=== PATIENT | female | born 1980 | race African-American/Black ===

== ENCOUNTER 2019-09-26 13:08 | Observation (INO) ==
[2019-09-26] MEDS ORDERED: ASPIRIN PO ONE (13:19)
--- NOTE | 2019-09-26 13:48 | EKG Report ---
Test Performed on : 09/26/2019 1:31:23 PM Test Reason : cp/sob Blood Pressure : / mmHG Vent. Rate : 105 BPM Atrial Rate : 105 BPM P-R Int : 140 ms QRS Dur : 074 ms QT Int : 350 ms P-R-T Axes : 060 -04 036 degrees QTc Int : 462 ms Sinus tachycardia. Possible Left atrial enlargement Borderline ECG When compared with ECG of 14-FEB-2019 09:18, No significant change was found Unconfirmed Result
[2019-09-26 13:56] LABS: AGAP 11; ALBUMIN 4.7 g/dL (3.5-5.0); ALKALINE PHOSPHATASE 87 U/L (32-104); BUN 7 mg/dL (8-22); CALCIUM 9.4 mg/dL (8.8-10.2); CHLORIDE 108 mmol/L (98-107); CK PROFILE 108 U/L (24-173); COSMO 281; CREATININE 0.6 mg/dL (0.5-0.9); ESTIMATED GFR > 60; GLUCOSE 88 mg/dL (70-104); GOT 11 U/L (10-30); GPT 11 U/L (10-36); SODIUM 142 mmol/L (136-145); TCO2 23 mmol/L (25-35); TOTAL PROTEIN 7.6 g/dL (6.3-8.3)
[2019-09-26 14:06] LABS: BASO# 0.03 X1000 (0.0-0.2); BASO% 0.3 % (0.0-0.8); EOS# 0.14 X1000 (0.0-0.7); EOS% 1.5 % (0.0-10.0); HEMOGLOBIN 13.8 g/dL (12.0-16.0); IMM GRAN# 0.02 X1000 (0.0-0.04); IMM GRAN% 0.2 % (0.0-0.5); LYMPH% 25.1 % (20.5-51.1); MCH 27.9 PG (27-31); MCHC 34.5 g/dL (33-37); MONO# 0.76 X1000 (0.11-0.59); MONO% 7.9 % (1.7-9.3); MPV 11.7 FL (7.4-10.4); NEUT# 6.23 X1000 (1.4-6.5); PLT 289 X1000 (130-400); RBC 4.94 XMIL (4.2-5.4); WBC 9.58 X1000 (4.8-10.8)
--- NOTE | 2019-09-26 14:13 | Diag Imaging Result Doc PS360 ---
CHEST-2 VIEWS - 09/26/2019 INDICATION: cp/sob COMPARISON: 02/14/2019 FINDINGS: The lungs are normally expanded and clear. Heart size and mediastinal contours are normal. No pneumothorax or pleural effusion. IMPRESSION: Negative exam. Electronically signed by Santos Avery 09/26/2019 2:11 PM
[2019-09-26] MEDS ORDERED: DILAUDID IV ONE (14:20)
[2019-09-26] MEDS ORDERED: PROTONIX IV ONE ×2 (14:20→14:55)
[2019-09-26] MEDS ORDERED: SODIUM CHLORIDE 0.9% INJ ONE ×4 (14:20→14:55)
[2019-09-26] MEDS ORDERED: PEPCID IV ONE ×2 (14:20→14:55)
[2019-09-26] MEDS ORDERED: ZOFRAN IV ONE (14:20)
[2019-09-26 14:36] LABS: INR 0.95; PROTIME 13.1 Seconds (11.0-16.0)
[2019-09-26 14:37] LABS: PTT 34.9 Seconds (22.3-41.8)
[2019-09-26] MEDS ORDERED: G.I. COCKTAIL PO ONE (14:55)
[2019-09-26] MEDS ORDERED: APRESOLINE IV ONE (16:15)
--- NOTE | 2019-09-26 16:26 | Diag Imaging Result Doc PS360 ---
EXAM: CT THORAX/ABD/PELVIS W/CON - 09/26/2019 HISTORY: LT. SIDE PAIN TECHNIQUE: CT thorax and abdomen/pelvis with intravenous contrast COMPARISON: 07/01/2016 CT abdomen/pelvis FINDINGS: CT thorax: The lungs appear clear. There is no pleural effusion or pneumothorax identified. There are calcified hilar and mediastinal lymph nodes from old granulomatous disease. There are no substantially enlarged noncalcified mediastinal or hilar lymph nodes identified. CT abdomen/pelvis: There is no liver abnormality identified. There is an approximately 2 x 1.8 cm lobulated low-density lesion in the posterior lateral spleen. The spleen appears upper range of normal in size. There is a 2.2 cm right adrenal nodule. The left adrenal gland is unremarkable. The bilateral kidneys enhance homogeneously except for tiny cysts at the lower right kidney. There is no hydronephrosis. There are nonspecific small retroperitoneal lymph nodes. There are some lower lumbar spine degenerative changes noted. There is no evidence of bowel obstruction. The appendix has air in the lumen and shows no evidence of inflammation. There is possible mild colonic diverticulosis. There is no evidence of diverticulitis. There is no free air or abscess identified. There is a tiny fat-containing umbilical hernia. There is a 2.6 x 2 cm low-density left adnexal lesion, which has enhancing ross. This is nonspecific but could represent a partially collapsed left ovarian cyst. There is a small amount of free fluid in the posterior pelvis. There is a sclerotic lesion at the right pubic symphysis. This was not present on the prior exam. IMPRESSION: CT thorax: No evidence of acute disease. CT abdomen/pelvis: 2 x 1.8 cm low-density splenic lesion. This could be infectious/inflammatory or malignant. 2.2 cm right adrenal nodule. Considerations include adrenal adenoma and malignancy such as metastasis. 2.6 x 2 cm left adnexal lesion. This is nonspecific but may represent a partially collapsed left ovarian cyst. There is a small amount of free fluid in the pelvis. Sclerotic lesion at right pubic symphysis. Considerations include interval old fracture, unusual degenerative disease, and sclerotic metastasis. This exam was performed using automated exposure control, adjustment of mA or kV according to patient size, and/or use of iterative reconstruction technique. Electronically signed by Mohinder Griffith 09/26/2019 4:23 PM
[2019-09-26] MEDS ORDERED: TYLENOL PO ONE (17:03)
--- NOTE | 2019-09-26 17:26 | PROVIDER DOCUMENTATION ---
This chart was entered by Tricia Pina Scribe, acting as scribe for Germain Romero MD. HPI-General Adult - General Chief Complaint: Chest Pain Stated Complaint: FLANK PAIN Time Seen by Provider: 09/26/19 13:24 Source: patient, family Allergies/Adverse Reactions: Patient Allergies Allergy/AdvReac Type Severity Reaction Status Date / Time No Known Allergies Allergy Verified 09/26/19 13:17 Home Medications: Home Medication List Medication Instructions Recorded Confirmed Last Taken Type Amlodipine [Norvasc] 10 mg PO DAILY #30 tab 01/31/19 09/26/19 Unknown Rx Famotidine [Pepcid] 20 mg PO DAILY #30 tab 09/26/19 Unknown Rx Pantoprazole [Protonix] 40 mg PO DAILY@0700 #30 tab 09/26/19 Unknown Rx - History of Present Illness -Gen Adult Nature of Presenting Problems: 39 yobf presents to the ed with c/o left anterior/central chest wall pain that radiates under left breast into left ribs. pt also has epigastric pain worse with palpation. pt sts pain is worse with deep breathing, movement or palpation. pt on exam is terful and anxious and sts "Im just scared" Location of Pain/Injury: reports: chest, abdomen Pain Radiation: reports: other (ribs) Quality of Pain: reports: aching, dull Severity: reports: severe Onset/Duration: reports: 2 days ago Timing: reports: still present, intermittent, getting worse Context/Activities at Onset: reports: light activity Modifying Factors: improves with: nothing, immobilization. worse with: coug monik, exercise, movement, palpation Associated Symptoms: reports: anxiety, chest pain, other (rib pain). denies: back/neck pain, fatigue, fever/chills, headaches, nausea, shortness of breath Similar Symptoms Previously?: No Recently seen or treated by another doctor?: No Review of Systems - Adult - REVIEW OF SYSTEMS - ADULT Constitutional: denies: chills, fever Eyes: reports: no symptoms reported Ears, Nose, Mouth & Throat: reports: no symptoms reported Cardiovascular: reports: see HPI, chest pain. denies: palpitations, syncope Respiratory: denies: shortness of breath, wheezing Gastrointestinal: reports: see HPI, abdominal pain. denies: diarrhea, nausea, vomiting Genitourinary: reports: no symptoms reported Musculoskeletal: reports: see HPI, bone pain (rib pain). denies: neck pain Integumentary: reports: no symptoms reported Neurological: denies: dizziness/vertigo, headache/migraines Psychiatric: reports: no symptoms reported Endocrine: reports: no symptoms reported Hematologic/Lymphatic: reports: no symptoms reported Allergic/Immunologic: reports: no symptoms reported All Other Systems: Reviewed and Negative Past History - Adult - PAST MEDICAL HISTORY-ADULT Review of Records: reports: Old Records Reviewed, Nursing Assessment Review, Medications Reviewed, Social history reviewed & non-contributory. Major Childhood Illnesses: reports: history unknown Cardiovascular: reports: HTN Respiratory: reports: denies history Gastrointestinal: reports: GERD Obstetrical/Gynecological: reports: denies history Genitourinary: reports: denies history Musculoskeletal: reports: denies history Hand Dominance: Right Handed Neurological: reports: denies history Psychiatric: reports: denies history Endocrine/Immune: reports: Sickle Cell disease Other Conditions: reports: denies history - PRIOR SURGERIES/PROCEDURES Surgical/Procedure History: reports: , orthopedic (extremity) - PRIOR HOSPITALIZATIONS Prior Hospitalizations: reports: none - IMMUNIZATION STATUS Childhood Immunizations: See Nurse Assessment Flu Vaccine: See Nurse Assessment - FAMILY HISTORY Family History: reviewed, not pertinent - SOCIAL HISTORY Smoking: denies Substance Use: denies Alcohol Use Frequency: never Living Situation: family Physical Exam-General - PHYSICAL EXAM-ADULT Initial Vital Signs Reviewed: Yes (noted BP 202/125 HR-104) - CONSTITUTIONAL General Appearance: alert, obese, anxious - EYES Eyes: PERRL/EOMI, pink conjunctivae - HEAD, EARS, NOSE, MOUTH & THROAT HENMT: moist mucous membranes, normal ENT inspection - NECK Neck: non-tender, full range of motion, supple, normal inspection - RESPIRATORY Respiratory: lungs clear, normal breath sounds, no respiratory distress, pain on inspiration. negative: crackles, rales, rhonchi, wheezing, crepitus - CARDIOVASCULAR Cardiovascular: normal peripheral pulses, regular rate, rhythm - CHEST (BREASTS) Chest/Breast: tenderness (left anterior and central chest wall pain rad into left ribs) - GASTROINTESTINAL (ABDOMEN) Abdominal Exam: normal bowel sounds, soft, no organomegaly, no pulsatile mass, g uarding, tenderness (epigastric). negative: rigid, rebound - GENITOURINARY Female Genitalia/Pelvic Exam: deferred Rectal Exam: deferred Hemoccult Exam: deferred - LYMPHATIC Lymphatic: no adenopathy - MUSCULOSKELETAL Back Exam: normal inspection, no CVA tenderness, no vertebral tenderness Extremity: normal range of motion, non-tender, normal gait, normal inspection, no pedal edema, no calf tenderness - SKIN Integumentary: normal color, normal turgor, warm/dry - NEUROLOGIC Neurologic: grossly normal - PSYCHIATRIC Psych/Mental Status: oriented x 3, anxious Progress - PLAN OF CARE/RESULTS Progress/Plan/Lab Results: Vital Signs - 8 hr 09/26/19 13:13 Temperature 98.1 F Pulse Rate 91 H Respiratory Rate 20 Blood Pressure 218/129 O2 Sat by Pulse Oximetry 100 Orders Category Date Time Status Cardiac Monitoring DIRECTED Care 09/26/19 13:19 Active Oxygen Therapy- ED Nursing DIRECTED Care 09/26/19 13:19 Active Saline Loc NOW Care 09/26/19 13:19 Active CHEST-2 VIEWS [RAD] Stat Exams 09/26/19 13:19 Ordered CBC WITH ELECTRONIC DIFF [HEME] Stat Lab 09/26/19 13:33 Results CK PROFILE [SP CHEM] Stat Lab 09/26/19 13:33 Received COMPREHENSIVE METABOLIC PANEL [CHEM] Stat Lab 09/26/19 13:33 Received PRO B-NATRIURETIC PEPTIDE Stat Lab 09/26/19 13:33 Received PROTIME WITH INR [COAG] Stat Lab 09/26/19 13:33 Received PTT [COAG] Stat Lab 09/26/19 13:33 Received TROPONIN T Stat Lab 09/26/19 13:33 Received Aspirin Med 09/26/19 13:19 Discontinued 325 mg PO NOW ONE CP/SOB/Palp >45 yrs of Age Stat Oth 09/26/19 13:19 Ordered EKG [EKG] Stat Ther 09/26/19 13:19 Draft Result Diagrams: 09/26/19 13:33 09/26/19 13:33 - REASSESSMENT Reassessment #1 Time Reassessed: 16:29 Status: improving Reassessment #2 Time Reassessed: 17:01 Status: improving (PT RESTING QUIETLY, SAYS HER EPIGASTRIC AND LEFT BODY PAIN IS BETTER (AFTER PEPCID,PANTOP,GI COCKTAIL)) Reassessment #3 Time Reassessed: 17:15 Status: improving (ABD PAINS ARE RESOLVED. BP BETTER. PT COMMITS TO F/U WITH HER PCP, DR STYLES, CONCERNING PROBABLE ADENOMAS OF SPLEEN AND ADRENAL, SCLEROTIC LESION OF PUBIS. WILL CONTINUE N HER ROUTINE BP MEDS.) - EKG 1 Time of EKG reading by physician:: 13:31 EKG Read and Signed by:: Germain Romero EKG Interpretation (*Must complete 3 of following elements*): Normal (borderline) Rate: 105 Rhythm: sinus tachycardia [place]: normal QRS: other (possible left atrial enlargement) [place] Interval: normal ST Wave: normal - XRAY 1 XRAY: Bilateral XRAY Study: Chest Impression: See EMR Report (CHEST-2 VIEWS - 09/26/2019 INDICATION: cp/sob COMPARISON: 02/14/2019 FINDINGS: The lungs are normally expanded and clear. Heart size and mediastinal contours are normal. No pneumothorax or pleural effusion. IMPRESSION: Negative exam. Electronically signed by Santos Avery 09/26/2019 2:11 PM 09/26/19 1411 Interpreting Physician: Santos Avery MD Dictated Date/Time: 09/26/19 1410 cc: Germain Romero MD; Sahil Green) - CT/MRI 1 CT Study: other (EXAM: CT THORAX/ABD/PELVIS W/CON - 09/26/2019 HISTORY: LT. SIDE PAIN TECHNIQUE: CT thorax and abdomen/pelvis with intravenous contrast COMPARISON: 07/01/2016 CT abdomen/pelvis FINDINGS: CT thorax: The lungs appear clear. There is no pleural effusion or pneumothorax identified. There are calcified hilar and mediastinal lymph nodes from old granulomatous disease. There are no substantially enlarged noncalcified mediastinal or hilar lymph nodes identified. CT abdomen/pelvis: There is no liver abnormality identified. There is an approximately 2 x 1.8 cm lobulated low-density lesion in the posterior lateral spleen. The spleen appears upper range of normal in size. There is a 2.2 cm right adrenal nodule. The left adrenal gland is unremarkable. The bilateral kidneys enhance homogeneously except for tiny cysts at the lower right kidney. There is no hydronephrosis. There are nonspecific small r etroperitoneal lymph nodes. There are some lower lumbar spine degenerative changes noted. There is no evidence of bowel obstruction. The appendix has air in the lumen and shows no evidence of inflammation. There is possible mild colonic diverticulosis. There is no evidence of diverticulitis. There is no free air or abscess identified. There is a tiny fat-containing umbilical hernia. There is a 2.6 x 2 cm low-density left adnexal lesion, which has enhancing ross. This is nonspecific but could represent a partially collapsed left ovarian cyst. There is a small amount of free fluid in the posterior pelvis. There is a sclerotic lesion at the right pubic symphysis. This was not present on the prior exam. IMPRESSION: CT thorax: No evidence of acute disease. CT abdomen/pelvis: 2 x 1.8 cm low-density splenic lesion. This could be infectious/inflammatory or malignant. 2.2 cm right adrenal nodule. Considerations include adrenal adenoma and malignancy such as metastasis. 2.6 x 2 cm left adnexal lesion. This is nonspecific but may represent a partially collapsed left ovarian cyst. There is a small amount of free fluid in the pelvis. Sclerotic lesion at right pubic symphysis. Considerations include interval old fracture, unusual degenerative disease, and sclerotic metastasis. This exam was performed using automated exposure control, adjustment of mA or kV according to patient size, and/or use of iterative reconstruction technique. Electronically signed by Mohinder Griffith 09/26/2019 4:23 PM 09/26/19 3603 Interpreting Physician: Mohinder Griffith MD Dictated Date/Time: 09/26/19 1604 cc: Germain Romero MD; Sahil Green) Departure - Departure Date of Disposition Decision: 09/26/19 Time of Disposition Decision: 17:17 DIAGNOSIS: PUD (peptic ulcer disease), Epigastric abdominal pain, Splenic mass, Adrenal mass Disposition: HOME 01 Certified Medical Emergency: Emergent Condition: Stable Additional Instructions: FOLLOW UP WITH PCP, DR STYLES CONCERNING CT FINDINGS OF LESIONS OF SPLEEN, ADRENAL AND PUBIS. TAKE YOUR BP MEDS DIRECTED AND YOUR NEW STOMACH MEDS. ED Follow Up Instructions: You have been treated by a care provider in the Emergency Department. These instructions are being provided to you so you can have an understanding of how to care for yourself upon discharge. Upon discharge from the Emergency Department, you are responsible for making arrangements for follow-up care by a physician of your choice. Take all prescribed medications as directed. Return to the Emergency Department immediately for any new or worsening symptoms. You may call the Physician Referral phone number at [phone] to obtain a list of Physicians who are taking new patients. Prescriptions: Famotidine [Pepcid] 20 mg PO DAILY #30 tab Pantoprazole [Protonix] 40 mg PO DAILY@0700 #30 tab Referrals and Follow-Ups: Sahil Green CRNP [Primary Care Provider] - Discharge Education: Peptic Ulcer, Hypertension - Critical Care Note This patient required my direct & personal management of CC.: No Attestation - Physician/ MERLIN Attestation Patient care was provided by Advanced Practice Provider:: No The physician spent face to face time with patient:: Yes Advanced Practice Provider documentation review:: Supervising physician onsite and consulted in the evaluation and care of this patient. The physician did have a face to face encounter with the patient. This chart was documented by the indicated scribe, (Tricia Pina Scribe) and accurately reflects the services I performed and decisions made by me, Germain Romero MD, as attested by the provider's signature.
[2019-09-26] MEDS ORDERED: ATIVAN IV ONE (18:14)
[2019-09-26] MEDS ORDERED: NS 1,000 ML IV ONE (18:27)
[2019-09-26] MEDS ORDERED: APRESOLINE IV PRN (18:52)
[2019-09-26] MEDS ORDERED: PRINIVIL PO ONE (18:53)
[2019-09-26] MEDS ORDERED: CARDENE 20 MG/NS 20 MG/200 ML PIGGYBACK IV SCH (19:00)
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
[2019-09-27] MEDS ORDERED: TYLENOL PO PRN ×2 (03:29→03:36)
[2019-09-27] MEDS ORDERED: TYLENOL PR PRN (03:34)
[2019-09-27] MEDS ORDERED: TYLENOL ONE (03:41)
[2019-09-27 05:45] LABS: HEMATOCRIT 39.6 % (37.0-47.0); HEMOGLOBIN 13.3 g/dL (12.0-16.0); MCH 27.3 PG (27-31); MCHC 33.6 g/dL (33-37); MCV 81.3 FL (81-99); MPV 11.5 FL (7.4-10.4); RBC 4.87 XMIL (4.2-5.4); RDW 13.1 % (11.5-14.5); WBC 8.77 X1000 (4.8-10.8)
[2019-09-27 06:15] LABS: AGAP 10; ALKALINE PHOSPHATASE 77 U/L (32-104); BUN 7 mg/dL (8-22); CALCIUM 9.1 mg/dL (8.8-10.2); CHLORIDE 109 mmol/L (98-107); COSMO 281; CREATININE 0.6 mg/dL (0.5-0.9); ESTIMATED GFR > 60; GLUCOSE 96 mg/dL (70-104); GOT 9 U/L (10-30); GPT 10 U/L (10-36); MAGNESIUM 2.3 mg/dL (1.5-2.7); POTASSIUM 4.1 mmol/L (3.5-5.1); SODIUM 142 mmol/L (136-145); TCO2 23 mmol/L (25-35); TOTAL PROTEIN 7.2 g/dL (6.3-8.3)
[2019-09-27 08:17] VITALS: BP 165/90
[2019-09-27] MEDS ORDERED: PRINIVIL PO SCH ×2 (09:00)
[2019-09-27] MEDS ORDERED: NORVASC PO SCH (09:00)
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
--- NOTE | 2019-09-28 09:08 | DISCHARGE SUMMARY ---
ADMISSION DATE: 09/26/2019 DISCHARGE DATE: 09/27/2019 DISCHARGE DIAGNOSES: 1. Malignant hypertension resolved. Blood pressure 195-121 on admit, 130s and 140s systolic on discharge. 2. Hypertension. 3. Reflux. 4. History of sickle cell. CONSULTATIONS: None. PROCEDURES: None. BRIEF HOSPITAL COURSE: The patient is a 39-year-old female who presented to the hospital secondary to feeling bad from her blood pressure noting the blood pressure was 180s which it typically is at home when she checks in the morning up to 200 and a little above 200 and that's the reason she came to the hospital. She denies any current chest pain, palpitations. Denies any fevers. Thankfully overall, her blood pressure was actually relatively easily controlled. She was given several doses medications in the ER. Blood pressures were still elevated. We gave her 10 lisinopril to go along with her 10 of Norvasc and her blood pressures dropped in the 140s systolic. Did discuss with her. We sent her home with 20 mg lisinopril. She is to break in half for the next 4 or 5 days. If her blood pressure is staying below 130 continue with a half otherwise, she would need to increase to the whole pill or 20 mg. Prescription was written. TIME SPENT: Greater than 30 minutes was spent in total care. Did discuss with patient the importance of blood pressure control. cc: Blade Graves MD
== END 2019-09-27 09:00 | disposition home or self-care (01) ==
LOC: P.ICU 13:08 → P.ED 13:08
PROVIDERS: ATTEND Family Medicine